=== PATIENT | female | born 1970 | race Caucasian/White ===

== ENCOUNTER → 2016-08-06 | Outpatient (CLI) | payer BC, OTHER ==
[~2016-08-06] MED LIST: CALC-80; MULT-608
--- NOTE | 2016-08-06 10:26 | Diagnostic Imaging Report ---
EXAMINATION: Right breast ultrasound. INDICATION: Dense breasts and history of palpable lump not felt as much currently. FINDINGS: The previously seen cyst at the 10:30 o'clock position has resolved. There are other simple appearing cystic areas such as a 1.1 cm cyst at the 6 o'clock zone 3 cm from the nipple with no solid component or internal vascularity demonstrated. Other scattered subcentimeter cysts are noted with no solid or suspicious lesion seen in the 4 quadrants of the retroareolar region. IMPRESSION: Scattered simple appearing cysts with no suspicious lesion. ACR BI-RADS Category 2: Benign findings. Dictated by: Dictated on workstation # [id number]
--- NOTE | 2016-08-06 13:00 | Diagnostic Imaging Report ---
EXAMINATION: Right breast diagnostic mammogram with a Computer Aided Detection (CAD) system. INDICATION: Followup palpable abnormality in the outer aspect of the right breast. COMPARISON: 02/05/2016. FINDINGS: The right breast parenchyma is extremely dense which would decrease mammographic sensitivity. No suspicious calcification, mass, or architectural distortion is seen. IMPRESSION: The right breast is dense with no definite change. An ultrasound evaluation is pending. ACR BI-RADS Category 0: Incomplete. (Needs additional imaging evaluation). Result letter will be mailed to the patient. Note: At least 10% of breast cancer is not imaged by mammography. Dictated by: Dictated on workstation # [id number]
== END ==
LOC: RAD 08:44
PROVIDERS: ATTEND Surgery
DX: N60.11 Diffuse cystic mastopathy of right breast (principal)
CPT/HCPCS: 76641

== ENCOUNTER 2016-11-11 19:08 | Emergency (ER) | payer BC ==
[~2016-11-11] VITALS: Ht 167.6 cm; Wt 59.9 kg
[2016-11-11] MEDS ORDERED: DICL75TA2 (20:10)
[2016-11-11] MEDS ORDERED: TETANUS,DIPTH,PERTUSS P/F (BOOSTRIX) 0.5 ML VIAL IM STA (20:14)
[2016-11-11] MEDS ORDERED: FLUORESCEIN (FLUOR-I-STRIPS) 1 MG STRP OU ONE (20:15)
[2016-11-11] MEDS ORDERED: TETRACAINE 0.5% OPHTH SOLN 4 ML BTL (SINGLE DOSE ONLY) OU ONE (20:15)
[2016-11-11] MEDS ORDERED: HYDROcodone/APAP 5 MG/325 MG (LORTAB) TAB PO STA (20:31)
[2016-11-11] MEDS ORDERED: RX-TOBRAMYCIN 0.3% OPHTH (TOBREX) SOLN 5 ML BTL OP STA (20:31)
--- NOTE | 2016-11-11 20:39 | ED EENT ---
History of Present Illness General Chief Complaint: Eye Problems Stated Complaint: LT EYE INJ Nursing Triage Note: sTATED APPROX 1.5 HRS AGO, PULLED A TREE BRANCH DOWN AND IT STUCK HER IN THE CORNER OF LEFT EYE, RED Source: patient Exam Limitations: no limitations History of Present Illness Time seen by provider: 20:20 Initial Comments Here with report of left eye injury. She was pulling a tree branch down when it broke and struck her in the corner of the left eye. She noted redness and pain. Feels achiness around the eye. No vision loss. Occurred approximately an hour and a half ago. Denies other injury. Tetanus is not up-to-date. Timing/Duration: abrupt Severity: moderate Location: eye (L) Prearrival Treatment: no prearrival treatment Allergies and Home Medications Allergies Coded Allergies: No Known Drug Allergies (Unverified , 11/11/16) Home Medications Diclofenac Sodium 75 Mg Tablet., (Reported) Review of Systems Constitutional: no symptoms reported Eyes: See HPI, Denies Blindness, Denies Blurred Vision, Denies Decreased Acuity , Foreign Body Sensation, Inflammation, Pain, Photophobia Respiratory: no symptoms reported Cardiovascular: no symptoms reported Neurological: No Symptoms Reported Past Nufrckz-Yenxmm-Udojhc Hx Patient Social History Alcohol Use: Denies Use Recreational Drug Use: No Smoking Status: Former Smoker Former Smoker, Quit: Feb 14, 2014 2nd Hand Smoke Exposure: No Recent Foreign Travel: No Contact w/Someone Who Travel: No Recent Infectious Disease Expo: No Recent Hopitalizations: No Physical Abuse: No Sexual Abuse: No Mistreated: No Fear: No Immunizations Up To Date Tetanus Booster (TDap): More than 5yrs Seasonal Allergies Seasonal Allergies: No Surgeries History of Surgeries: Yes Surgeries: Abdominal, Section Respiratory History of Respiratory Disorde: No Cardiovascular History of Cardiac Disorders: No Neurological History of Neurological Disord: No Reproductive System Hx Reproductive Disorders: No Sexually Transmitted Disease: No Gastrointestinal History of Gastrointestinal Di: No Musculoskeletal History of Musculoskeletal Dis: No Endocrine History of Endocrine Disorders: No Psychosocial Suicide Risk Score: 0 Integumentary History of Skin or Integumenta: No Blood Transfusions History of Blood Disorders: No Reviewed Nursing Assessment Reviewed/Agree w Nursing PMH: Yes Family Medical History Significant Family History: No Pertinent Family Hx Visual Acuity : Eye Location: Left Vision Acuity Degree: 20/25 Physical Exam Vital Signs Vital Sign - Last 12Hours 11/11/16 20:02 Temp 97.9 Pulse 58 Resp 18 B/P (MAP) 124/63 Pulse Ox 99 General Appearance: WD/WN, no apparent distress Eyes: right eye normal inspection, left eye conjunctival hemorrhage, left eye conjunctival inflammation, left eye other (subconjunctival hemorrhage to the medial aspect of the left eye. Conjunctival abrasion in the medial aspect. No persistent bleeding. No leakage of intraocular fluid noted after fluorescein staining.), bilateral eye PERRL, bilateral eye EOMI Cardiovascular: regular rate, rhythm, no murmur Respiratory: lungs clear, normal breath sounds Neurologic/Psychiatric: alert, oriented x 3 Skin: normal color, warm/dry Progress/Results/Core Measures Results/Orders My Orders Orders - [facility] MD Tetracaine 0.5% Ophth Shanta Sdv (Tetracai (11/11/16 20:15) Fluorescein Strips ([id number]) (11/11/16 20:15) Dipht,Pertuss(Acell),Tet Adult (Boostrix (11/11/16 20:14) Hydrocodone/Apap 5/325 Tablet (Lortab 5 (11/11/16 20:31) Rx-Hydrocodone/Apap 5-325 Mg (Rx-Vicodin (11/11/16 20:45) Rx-Tobramycin Ophth Drops (Rx-Tobrex 0.3 (11/11/16 20:31) Medications Given in ED Current Medications Medications Dose Ordered Sig/Briseida Route Start Time Stop Time Status Last Admin Dose Admin Fluorescein Sodium 1 mg ONCE ONCE OU 11/11/16 20:15 11/11/16 20:16 DC 11/11/16 20:18 1 MG Tetracaine HCl 4 ml ONCE ONCE OU 11/11/16 20:15 11/11/16 20:16 DC 11/11/16 20:18 4 ML Vital Signs/I&O Vital Sign - Last 12Hours 11/11/16 20:02 Temp 97.9 Pulse 58 Resp 18 B/P (MAP) 124/63 Pulse Ox 99 Blood Pressure Mean: 83 Progress Note : Progress Note Seen and evaluated. Visual acuity noted. Tetanus updated. Tetracaine drops and fluorescein staining done. Wood lamp inspection noted medial aspect conjunctival abrasion. Tobramycin drops instilled and go pack given.. Hydrocodone 5/325 one tab by mouth given and go pack given. Tetanus updated. I did discuss the case with Dr. Murry. He will see the patient tomorrow at 8 a.m. Discharged home with return precautions. Patient verbalize understanding instructions and agreement with plan. Departure Impression Impression: Primary Impression: Subconjunctival hemorrhage of left eye Additional Impression: Abrasion of left conjunctiva Qualified Codes: S05.02XA - Injury of conjunctiva and corneal abrasion without foreign body, left eye, initial encounter Disposition: HOME, SELF-CARE Condition: Stable Departure-Patient Inst. Decision time for Depature: 20:38 Referrals: BALBIR ZEPEDA DO (PCP/Family) Primary Care Physician RUFUS MURRY OD Patient Instructions: Eye Contusion (DC), Subconjunctival Hemorrhage Add. Discharge Instructions: All discharge instructions reviewed with patient and/or family. Voiced understanding. Use eyedrops 1-2 drops every 4 hours while awake. Follow-up with Dr. Murry at 8 a.m. tomorrow morning at his clinic in the [facility] eye clinic across from [facility]. You may take ibuprofen 600 mg every 8 hours as needed for pain. Take other medications as directed. Return for worsening, fever, vomiting, weakness, vision problems, or other concerns as needed. Copy Copies To 1: RUFUS MURRY OD, TIMOTHY D MD Nov 11, 2016 20:39
[2016-11-11] MEDS ORDERED: RX-HYDROCODONE/APAP 5/325 MG #4 TAB PK PO PRN (20:45)
[2016-11-11 21:08] VITALS: BP 123/65
== END 2016-11-11 20:50 | disposition home or self-care (01) ==
LOC: EDUNIT# 19:08 → ER 19:09
DX: H11.32 Conjunctival hemorrhage, left eye (principal); Z87.891 Personal history of nicotine dependence; Z87.59 Personal history of other complications of pregnancy, childbirth and the puerperium; Z23 Encounter for immunization; W20.8XXA Other cause of strike by thrown, projected or falling object, initial encounter
CPT/HCPCS: 90471; 90715; 99283

== ENCOUNTER → 2017-02-21 | Outpatient (CLI) | payer BC ==
[~2017-02-21] MED LIST changes: +DICL75TA2
--- NOTE | 2017-02-21 15:09 | Diagnostic Imaging Report ---
INDICATION: Followup abnormal mammogram. COMPARISON: 03/19/2016, 02/05/2016, and 01/12/2012. TECHNIQUE: Digital diagnostic mammography was performed bilaterally with a Computer Aided Detection (CAD) system. FINDINGS: There is moderately dense fibroglandular tissue bilaterally. There is no dominant mass, spiculated lesion, or suspicious calcification identified. The skin, nipples, and axillae are unremarkable. IMPRESSION: Negative exam. ACR BI-RADS Category 1: Negative. Result letter will be mailed to the patient. Note: At least 10% of breast cancer is not imaged by mammography. Dictated by: Dictated on workstation # [id number]
== END ==
LOC: RAD 14:17
PROVIDERS: ATTEND Internal Medicine
DX: R92.8 Other abnormal and inconclusive findings on diagnostic imaging of breast (principal)
CPT/HCPCS: 77066

== ENCOUNTER → 2019-03-20 | Outpatient (CLI) | payer BC ==
--- NOTE | 2019-03-20 16:10 | Diagnostic Imaging Report ---
INDICATION: Routine screening. COMPARISON: 02/21/2017 and 02/05/2016. TECHNIQUE: 2D and 3D bilateral screening mammography was performed with CAD. FINDINGS: Both breasts remain heterogeneously dense, limiting the sensitivity of mammography. No dominant mass or malignant appearing microcalcifications are seen. The axillae are unremarkable. IMPRESSION: No mammographic features suspicious for malignancy are identified. ACR BI-RADS Category 1: Negative. Result letter will be mailed to the patient. Note: At least 10% of breast cancer is not imaged by mammography. Dictated by: Dictated on workstation # [id number]
== END ==
LOC: RAD 15:14
PROVIDERS: ATTEND Internal Medicine
DX: Z12.31 Encounter for screening mammogram for malignant neoplasm of breast (principal)
CPT/HCPCS: 77067

== ENCOUNTER → 2020-04-04 | Outpatient (CLI) | payer BC ==
--- NOTE | 2020-04-07 08:23 | Diagnostic Imaging Report ---
INDICATION: Routine screening. Comparison is made with prior mammogram 03/20/2019 and 02/21/2017. 2-D and 3-D bilateral screening mammography was performed with CAD. Both breasts are heterogeneously dense, limiting the sensitivity of mammography. The parenchymal pattern is stable. No dominant mass or malignant appearing microcalcifications are seen. Axillae are unremarkable. IMPRESSION: BI-RADS Category 1 No mammographic features suspicious for malignancy are identified. ACR BI-RADS Category 1: Negative. Result letter will be mailed to the patient. Note: At least 10% of breast cancer is not imaged by mammography. Dictated by: Dictated on workstation # [id number]
== END ==
LOC: RAD 15:00
PROVIDERS: ATTEND Internal Medicine
DX: Z12.31 Encounter for screening mammogram for malignant neoplasm of breast (principal)
CPT/HCPCS: 77063; 77067

== ENCOUNTER → 2021-04-23 | Outpatient (CLI) | payer BC | LOC: WOUNDCARE 13:11 | PROVIDERS: ATTEND Family Medicine | DX: L90.9 Atrophic disorder of skin, unspecified (principal); T80.89XA Other complications following infusion, transfusion and therapeutic injection, initial encounter | CPT/HCPCS: 99212 ==

== ENCOUNTER → 2022-09-17 | Outpatient (CLI) | payer BC ==
--- NOTE | 2022-09-17 11:14 | Diagnostic Imaging Report ---
INDICATION: Routine screening. Comparison is made with prior mammogram from 04/04/2020 and 03/20/2019. 2-D and 3-D bilateral screening mammography was performed with CAD. Both breasts are heterogeneously dense, limiting the sensitivity of mammography. The parenchymal pattern is stable. No mass or malignant-appearing microcalcifications are seen. There are benign calcifications present. Axillae are unremarkable. IMPRESSION: No mammographic features suspicious for malignancy are identified. ACR BI-RADS Category 2: Benign findings. Result letter will be mailed to the patient. Note: At least 10% of breast cancer is not imaged by mammography. BI-RADS Category 2 Dictated by: Dictated on workstation # [id number]
== END ==
LOC: RAD 07:27
PROVIDERS: ATTEND Internal Medicine
DX: Z12.31 Encounter for screening mammogram for malignant neoplasm of breast (principal)
CPT/HCPCS: 77063; 77067